=== PATIENT | female | born 1945 | race Caucasian/White ===

== ENCOUNTER → 2019-10-29 | Outpatient (CLI) | payer MEDICARE ==
--- NOTE | 2019-10-29 10:38 | Diagnostic Imaging Report ---
INDICATION: Back pain. COMPARISON: None FINDINGS: Frontal and lateral views of the lumbar spine were obtained. Alignment and vertebral heights are maintained. There is no fracture or destructive process. 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 Limited views of the abdomen demonstrate nonobstructive bowel gas pattern. IMPRESSION: 1. No acute fracture or dislocation of the lumbar spine. Dictated by: Dictated on workstation # [id number]
== END ==
LOC: RAD FS 10:04
PROVIDERS: ATTEND Nurse Practitioner
DX: M54.5 Low back pain (principal)
CPT/HCPCS: 72100

== ENCOUNTER 2020-08-26 20:25 | Emergency (ER) | payer MEDICARE ==
[2020-08-26] MEDS ORDERED: NS IV 1000 ML 1,000 ML IV SCH (20:45)
[2020-08-26] MEDS ORDERED: ACETAMINOPHEN 500 MG TAB (TYLENOL) PO ONE (20:45)
[2020-08-26] MEDS ORDERED: ONDANSETRON 4 MG/2 ML (SDV) Z0FRAN IVP ONE (20:45)
[2020-08-26] MEDS ORDERED: KETOROLAC 30 MG/ML VIAL IVP ONE (20:45)
--- NOTE | 2020-08-26 20:55 | ED General ---
General Chief Complaint: Abdominal/GI Problems Stated Complaint: DIARRHEA,CHILLS,HOT FLASHES Nursing Triage Note: Pt complaining of diarrhea for a week as well as nausea Nursing Sepsis Screen: No Definite Risk History of Present Illness Date Seen by Provider: Aug 26, 2020 Time Seen by Provider: 20:53 Initial Comments Patient presenting to emergency department for evaluation of multiple complaints including fevers chills nausea diarrhea generalized malaise and fatigue. Symptoms have been going off and on for approximately 9 days. She denies any rash dysuria cough shortness of breath vomiting headache or neck stiffness. She says the diarrhea is occurring approximately 3 times a day and is loose but nonbloody. She denies being on any antibiotics recently or any recent foreign travel or chemotherapy. She says that she is overall healthy. She denies any pain at all to me including no abdominal pain and rectal pain chest pain or headache. She is in no obvious distress. Allergies and Home Medications Allergies Coded Allergies: No Known Drug Allergies (Unverified , 08/26/20) Patient Home Medication List Home Medication List Reviewed: Yes Review of Systems Review of Systems Constitutional: chills, fever, malaise EENTM: no symptoms reported Respiratory: no symptoms reported Cardiovascular: no symptoms reported Gastrointestinal: diarrhea, nausea Genitourinary: no symptoms reported Musculoskeletal: no symptoms reported Skin: no symptoms reported Psychiatric/Neurological: No Symptoms Reported All Other Systems Reviewed Negative Unless Noted: Yes Past Xetfwfe-Chzaeq-Nvjero Hx Patient Social History Alcohol Use: Denies Use Recreational Drug Use: No Smoking Status: Never a Smoker 2nd Hand Smoke Exposure: No Recent Foreign Travel: No Contact w/Someone Who Travel: No Recent Infectious Disease Expo: No Recent Hopitalizations: No Physical Abuse: No Sexual Abuse: No Past Medical History Surgeries: No Respiratory: No Cardiac: No Neurological: No Genitourinary: No Gastrointestinal: No Musculoskeletal: No Endocrine: No HEENT: No Cancer: No Psychosocial: No Integumentary: No Blood Disorders: No Physical Exam Vital Signs Vital Signs - First Documented 08/26/20 20:32 Temp 37.9 Pulse 84 Resp 16 B/P (MAP) 141/61 (87) Pulse Ox 97 O2 Delivery Room Air Capillary Refill : Less Than 3 Seconds Height, Weight, BMI Height: '" Weight: lbs. oz. kg; BMI Method: General Appearance: No Apparent Distress, WD/WN HEENT: PERRL/EOMI Neck: Supple Respiratory: No Respiratory Distress Cardiovascular: Regular Rate, Rhythm Gastrointestinal: Non Tender, Soft Back: Normal Inspection Extremity: Normal Capillary Refill Neurologic/Psychiatric: Alert, Oriented x3 Skin: Warm/Dry Progress/Results/Core Measures Suspected Sepsis Recent Fever Within 48 Hours: No Infection Criteria Present: None New/Unexplained Altered Menta: No Sepsis Screen: No Definite Risk SIRS Temperature: Pulse: 84 Respiratory Rate: 16 Laboratory Tests 08/26/20 20:50: White Blood Count 4.9 Blood Pressure 141 /61 Mean: 87 Laboratory Tests 08/26/20 20:50: Creatinine 0.72, Platelet Count 180, Total Bilirubin 0.4 Results/Orders Lab Results Laboratory Tests Test 08/26/20 20:50 08/26/20 21:40 Range/Units White Blood Count 4.9 4.3-11.0 10^3/uL Red Blood Count 4.77 4.35-5.85 10^6/uL Hemoglobin 13.4 11.5-16.0 G/DL Hematocrit 40 35-52 % Mean Corpuscular Volume 85 80-99 FL Mean Corpuscular Hemoglobin 28 25-34 PG Mean Corpuscular Hemoglobin Concent 33 32-36 G/DL Red Cell Distribution Width 13.0 10.0-14.5 % Platelet Count 180 130-400 10^3/uL Mean Platelet Volume 8.9 7.4-10.4 FL Immature Granulocyte % (Auto) 0 % Neutrophils (%) (Auto) 68 42-75 % Lymphocytes (%) (Auto) 23 12-44 % Monocytes (%) (Auto) 9 0-12 % Eosinophils (%) (Auto) 0 0-10 % Basophils (%) (Auto) 0 0-10 % Neutrophils # (Auto) 3.3 1.8-7.8 X 10^3 Lymphocytes # (Auto) 1.1 1.0-4.0 X 10^3 Monocytes # (Auto) 0.4 0.0-1.0 X 10^3 Eosinophils # (Auto) 0.0 0.0-0.3 10^3/uL Basophils # (Auto) 0.0 0.0-0.1 10^3/uL Immature Granulocyte # (Auto) 0.0 0.0-0.1 10^3/uL Neutrophils % (Manual) 59 % Lymphocytes % (Manual) 17 % Monocytes % (Manual) 7 % Eosinophils % (Manual) 1 % Basophils % (Manual) 1 % Metamyelocytes % 2 % Band Neutrophils 8 % Atypical Lymphocytes 5 % Sodium Level 138 135-145 MMOL/L Potassium Level 3.6 3.6-5.0 MMOL/L Chloride Level 103 98-107 MMOL/L Carbon Dioxide Level 26 21-32 MMOL/L Anion Gap 9 5-14 MMOL/L Blood Urea Nitrogen 10 7-18 MG/DL Creatinine 0.72 0.60-1.30 MG/DL Estimat Glomerular Filtration Rate > 60 BUN/Creatinine Ratio 14 Glucose Level 120 H 70-105 MG/DL Calcium Level 9.3 8.5-10.1 MG/DL Corrected Calcium 9.5 8.5-10.1 MG/DL Total Bilirubin 0.4 0.1-1.0 MG/DL Aspartate Amino Transf (AST/SGOT) 30 5-34 U/L Alanine Aminotransferase (ALT/SGPT) 15 0-55 U/L Alkaline Phosphatase 49 40-136 U/L Total Protein 7.4 6.4-8.2 GM/DL Albumin 3.7 3.2-4.5 GM/DL Urine Color YELLOW Urine Clarity CLEAR Urine pH 6.5 5-9 Urine Specific [place] 1.020 1.016-1.022 Urine Protein 1+ H NEGATIVE Urine Glucose (UA) NEGATIVE NEGATIVE Urine Ketones NEGATIVE NEGATIVE Urine Nitrite NEGATIVE NEGATIVE Urine Bilirubin NEGATIVE NEGATIVE Urine Urobilinogen 1.0 < = 1.0 MG/DL Urine Leukocyte Esterase NEGATIVE NEGATIVE Urine RBC (Auto) TRACE H NEGATIVE Urine RBC RARE /HPF Urine WBC RARE /HPF Urine Squamous Epithelial Cells 0-2 /HPF Urine Crystals PRESENT H /LPF Urine Amorphous Sediment FEW DWIGHT PHOSPHATE H /LPF Urine Bacteria TRACE /HPF Urine Casts NONE /LPF Urine Mucus SMALL H /LPF Urine Culture Indicated NO My Orders Orders - FELIPA AKERS DO Cbc With Automated Diff (08/26/20 20:40) Comprehensive Metabolic Panel (08/26/20 20:40) Iv/Invasive Line Insertion .IV start (08/26/20 20:40) Ua Culture If Indicated (08/26/20 20:40) Ondansetron Injection (Zofran Injectio (08/26/20 20:45) Ns Iv 1000 Ml (Sodium Chloride 0.9%) (08/26/20 20:45) Ketorolac Injection (Toradol Injection) (08/26/20 20:45) Acetaminophen Tablet (Tylenol Tablet) (08/26/20 20:45) Manual Differential (08/26/20 20:50) Medications Given in ED Current Medications Medications Dose Ordered Sig/Peter Route Start Time Stop Time Status Last Admin Dose Admin Acetaminophen 1,000 mg ONCE ONCE PO 08/26/20 20:45 08/26/20 20:46 DC 08/26/20 20:56 1,000 MG Ketorolac Tromethamine 15 mg ONCE ONCE IVP 08/26/20 20:45 08/26/20 20:46 DC 08/26/20 20:56 15 MG Ondansetron HCl 4 mg ONCE ONCE IVP 08/26/20 20:45 08/26/20 20:46 DC 08/26/20 20:56 4 MG Vital Signs/I&O 08/26/20 08/26/20 08/26/20 20:32 21:35 21:35 Temp 37.9 37.8 37.8 Pulse 84 Resp 16 B/P (MAP) 141/61 (87) Pulse Ox 97 O2 Delivery Room Air Capillary Refill : Less Than 3 Seconds Blood Pressure Mean: 87 Progress Note : Progress Note Patient with multiple nonspecific symptoms however I did check basic labs urinalysis treat symptoms and reassess. Workup is completely normal and she has no leukocytosis or signs of infection and her urine. Her chemistries are normal as well. She did feel better after getting fluids and treatment here. She says she is here because she is most worried about being dehydrated given the diarrhea over the past 9 days but I reassured her that there is no signs of severe dehydration based off her urinalysis her chemistries. I told her that she should follow with her primary care provider tomorrow or the next day for recheck and to see if she can get a stool sample as an outpatient as she was unable to provide one in the emergency department. Patient will be discharged in stable condition told to follow-up as above and come back to the ED sooner with worsening pain fevers vomiting or other general concerns. Patient aware and agreeable with plan and verbalized understanding of the above instructions. Departure Impression Primary Impression: Nausea alone Additional Impression: Diarrhea Qualified Codes: R19.7 - Diarrhea, unspecified Disposition: 01 HOME, SELF-CARE Condition: Stable Departure-Patient Inst. Referrals: SANDHYA JIEMNEZ MD (PCP/Family) Primary Care Physician Add. Discharge Instructions: Drink plenty of water and gatorade. Take 600mg of ibuprofen every 6 hours for pain/fever Alternate with 650mg of tylenol every 6 hours for pain/fever Take imodium OTC for diarrhea Follow with PCP within 2 days. Come back with any concerns Thank you! All discharge instructions reviewed with patient and/or family. Voiced understanding. Scripts Ondansetron (Ondansetron Odt) 4 Mg Tab.rapdis 4 MG PO Q6H PRN for NAUSEA/VOMITING-1ST LINE, #10 TAB Prov: FELIPA AKERS DO 08/26/20 FELIPA AKERS DO Aug 26, 2020 20:55
[2020-08-26 21:18] LABS: BASOPHILS % (AUTO) 0 % (0-10); EOSINOPHILS % (AUTO) 0 % (0-10); HEMATOCRIT 40 % (35-52); HEMOGLOBIN 13.4 G/DL (11.5-16.0); LYMPHOCYTES % (AUTO) 23 % (12-44); MEAN CORPUSCULAR HEMOGLOBIN 28 PG (25-34); MEAN CORPUSCULAR HGB CONC 33 G/DL (32-36); MEAN CORPUSCULAR VOLUME 85 FL (80-99); MEAN PLATELET VOLUME 8.9 FL (7.4-10.4); MONOCYTES % (AUTO) 9 % (0-12); NEUTROPHILS % (AUTO) 68 % (42-75); PLATELET COUNT 180 10^3/uL (130-400); WHITE BLOOD COUNT 4.9 10^3/uL (4.3-11.0)
[2020-08-26 21:19] LABS: LYMPHOCYTES # (AUTO) 1.1 X 10^3 (1.0-4.0); MONOCYTES # (AUTO) 0.4 X 10^3 (0.0-1.0); NEUTROPHILS # (AUTO) 3.3 X 10^3 (1.8-7.8)
[2020-08-26 21:20] LABS: ATYPICAL LYMPHOCYTES 5 %; BAND NEUTROPHILS 8 %; BASOPHILS % (MANUAL) 1 %; EOSINOPHILS % (MANUAL) 1 %; LYMPHOCYTES % (MANUAL) 17 %; METAMYELOCYTES % 2 %; MONOCYTES % (MANUAL) 7 %; NEUTROPHILS % (MANUAL) 59 %
[2020-08-26 21:22] LABS: BUN/CREATININE RATIO 14; CARBON DIOXIDE 26 MMOL/L (21-32); CHLORIDE 103 MMOL/L (98-107); CREATININE SERUM 0.72 MG/DL (0.60-1.30); GFR ESTIMATED > 60; POTASSIUM 3.6 MMOL/L (3.6-5.0); SODIUM 138 MMOL/L (135-145)
[2020-08-26 21:23] LABS: ALANINE AMINOTRANSFERASE 15 U/L (0-55); ALBUMIN 3.7 GM/DL (3.2-4.5); ALKALINE PHOSPHATASE 49 U/L (40-136); BILIRUBIN,TOTAL 0.4 MG/DL (0.1-1.0); CALCIUM 9.3 MG/DL (8.5-10.1); GLUCOSE 120 MG/DL (70-105); TOTAL PROTEIN 7.4 GM/DL (6.4-8.2)
[2020-08-26 21:55] LABS: BACTERIA,URINE TRACE /HPF; BILIRUBIN,URINE NEGATIVE (NEGATIVE); CLARITY,URINE CLEAR; COLOR,URINE YELLOW; GLUCOSE, URINE (UA) NEGATIVE (NEGATIVE); KETONES,URINE NEGATIVE (NEGATIVE); LEUKOCYTE ESTERASE ,URINE NEGATIVE (NEGATIVE); NITRITE,URINE NEGATIVE (NEGATIVE); PH,URINE 6.5 (5-9); PROTEIN,URINE 1+ (NEGATIVE); RBC,URINE RARE /HPF; WBC,URINE RARE /HPF
[2020-08-26 21:56] LABS: AMORPHOUS SEDIMENT,UR FEW AMOR PHOSPHATE /LPF; SQUAMOUS EPITHELIAL CELL,UR 0-2 /HPF
[2020-08-26] MEDS ORDERED: ONDA4TAB11 PO (22:03)
[2020-08-26 22:07] VITALS: BP 136/62
== END 2020-08-26 22:08 | disposition home or self-care (01) ==
LOC: EDUNIT# 20:25 → ER FS 20:27
DX: R11.0 Nausea (principal); R19.7 Diarrhea, unspecified
CPT/HCPCS: 36415; 80053; 81000; 85007; 85027; 99283